=== PATIENT | male | born 1950 | race Caucasian/White ===

== ENCOUNTER → 2024-02-14 16:04 | Outpatient (REF) | payer OTHER, SELFPAY | LOC: RAD 16:04 | PROVIDERS: ATTENDING PHYSICIAN Internal Medicine Cardiovascular Disease; FAMILY PHYSICIAN Internal Medicine | DX: R06.09 Other forms of dyspnea (principal); J98.4 Other disorders of lung | CPT/HCPCS: 71250 ==

== ENCOUNTER → 2024-02-28 15:54 | Outpatient (REF) | payer OTHER, SELFPAY | LOC: HWRCS 15:54 | PROVIDERS: ATTENDING PHYSICIAN Internal Medicine Cardiovascular Disease; FAMILY PHYSICIAN Internal Medicine | DX: I45.10 Unspecified right bundle-branch block (principal); R06.09 Other forms of dyspnea; I10 Essential (primary) hypertension | CPT/HCPCS: 93306 ==

== ENCOUNTER 2024-08-07 08:01 | Day surgery (SDC) | payer OTHER, SELFPAY ==
[2024-07-26 06:35] VITALS: BMI 37.1
[2024-07-26 07:01] LABS: % Basophils 0.8 % (0-2); % Eosinophils 4.2 % (0-6); % Immature Granulocytes 0.3 % (0-0.5); % Lymphocytes 17.6 % (20.5-51.1); % Monocytes 9.6 % (1.7-9.3); % Neutrophils 67.5 % (42.2-75.2); Absolute Basophils 0.1 10^3/uL (0-0.2); Absolute Eosinophils 0.3 10^3/uL (0-0.7); Absolute Lymphocytes 1.3 10^3/uL (1.2-3.4); Absolute Monocytes 0.7 10^3/uL (0.1-0.6); Absolute Neutrophils 5.2 10^3/uL (1.4-6.5); Hematocrit 42.9 % (39.0-52.0); Hemoglobin 14.2 g/dL (13.0-18.0); Mean Corp Hgb Conc. 33.1 g/dL (33.0-37.0); Mean Corpuscular Hgb 30.1 pg (27.0-31.0); Mean Corpuscular Volume 90.9 fL (80.0-94.0); Mean Platelet Volume 9.3 fL (7.4-10.4); Nucleated Red Blood Cells % 0 % (-); Platelet Count 207 10^3/uL (130-400); Red Blood Cell Count 4.72 10^6/uL (4.70-6.10); Red Cell Dist. Width 13.5 % (11.5-14.5); White Blood Cell Count 7.6 10^3/uL (4.8-10.8)
[2024-07-26 07:13] LABS: ALT (SGPT) 30 U/L (0-50); AST (SGOT) 26 U/L (17-59); Albumin 4.7 g/dl (3.5-5.0); Alkaline Phosphatase 107 U/L (38-126); Blood Urea Nitrogen 24 mg/dl (9-20); Calcium 9.2 mg/dl (8.4-10.2); Carbon Dioxide 22 mmol/L (22-30); Chloride 102 mmol/L (98-107); Estimated Creatinine Clearance 95 ml/min; Glucose 148 mg/dl (70-99); Potassium 4.4 mmol/L (3.5-5.1); Sodium 140 mmol/L (135-145); Total Bilirubin 0.9 mg/dl (0.2-1.3); Total Protein 7.3 g/dl (6.3-8.2); eGFR > 60.00
[2024-08-07] VITALS (8 sets, daily range): BP systolic 143–163; BP diastolic 59–81
[2024-08-07 08:56] LABS: Glucose - Point of Care 123 mg/dl (70-99)
--- NOTE | 2024-08-07 11:49 | ITS.CL.CATH ---
[employer] [facility] - Catheterization
Cardiac Catheterization
Procedure Report:
RIGHT HEART CATHETERIZATION
Date of Procedure: 08/07/2024
Referring: Chencho Martin D.O.
INDICATION: Dyspnea on exertion.
ACCESS:
5 [place] antecubital fossa.
CATHETERS:
5 [place] balloon wedge.
PROCEDURE:
An IV was placed by the nursing staff in the right antecubital fossa. The patient was prepped and draped in standard sterile fashion, including copious cleansing of the IV and IV site. The area around the IV was anesthetized with 1% lidocaine. A 5
[place] sheath was inserted into the basilic vein. A 5 [place] balloon wedge catheter was advanced through the sheath into the superior vena cava. An SVC oxygen saturation was drawn. The balloon wedge catheter was advanced into the pulmonary artery
and a pulmonary artery oxygen saturation was drawn. Arterial oxygen saturation was assumed from pulse oximetry. Cardiac output was calculated using the [place] equation. The PA, wedge, RV and RA pressures were measured on pullback. The balloon wedge
catheter was removed. The 5 [place] sheath was removed and manual pressure was held for hemostasis.
Weight (kg): 110.2
PA (s/d/x mmHg):
PCWP (a/v/x mmHg):
RV (s/x mmHg): 42/10
RA (a/v/x mmHg): 08/14/2010
SVC SvO2 (%): 68.2
IVC SvO2 (%): Not obtained
RA SvO2 (%): Not obtained.
RV SvO2 (%): Not obtained.
PA SvO2 (%): 70.5
SaO2 (%): 96.0 (assumed)
Hbg (g/dL): 14.5
[place]
CO (liters/minute): 4.50
CI (liters/minute/m2): 2.02
Thermodilution
CO (liters/minute): Not performed.
CI (liters/minute/m2): Not performed.
TPG (mmHg): 13
PVR (Alatorre Units): 2.89
AVO2 Difference (Volume %): 5.03
Radiation (mGy): 25.95
DAP (cm2.Gy): 3.3165
Fluoroscopy time (minutes): 1.3
CONCLUSION:
1. Normal filling pressures (PCWP = 14 mmHg at 110.2 kg).
2. Top normal to mild postcapillary pulmonary hypertension (mean PA = 27 mmHg, cardiac output = 4.50 L/min, PVR = 2.89 Alatorre units).
RECOMMENDATIONS:
1. Expectant management after right heart catheterization via right antecubital approach.
2. Pulmonary function testing.
3. Physical therapy for back pain and to address physical deconditioning.
Copy to: Chencho Martin D.O., Papo Velásquez D.O.
Chencho Martin D.O., FACC, FACP
--- NOTE | 2024-08-07 13:20 | PTCARENOTE ---
approximately 1315- lunch relief bedside report recieved from Elena DUPREE. Pt dressed sitting in stretcher. at bedside. No complaints at time.
Waiting to speak to Dr Martin.
--- NOTE | 2024-08-07 13:38 | PTCARENOTE ---
librado gaytan rn back from lunch. pt discharged, but waiting to speak w dr power reguarding his procedure. at bedside.
== END 2024-08-07 13:51 | disposition home or self-care (01) ==
LOC: CATH 08:01
PROVIDERS: ATTENDING PHYSICIAN Internal Medicine Cardiovascular Disease; FAMILY PHYSICIAN Internal Medicine
DX: R06.09 Other forms of dyspnea (principal); I45.2 Bifascicular block; I10 Essential (primary) hypertension; I27.29 Other secondary pulmonary hypertension; E78.5 Hyperlipidemia, unspecified; E11.9 Type 2 diabetes mellitus without complications; Z87.891 Personal history of nicotine dependence
CPT/HCPCS: 36415; 80053; 82962; 85025; 93005; 93451; C1894